=== PATIENT | female | born 1980 | race Caucasian/White ===

== ENCOUNTER 2017-02-12 11:49 | Emergency (ER) | payer OTHER, BC | END 2017-02-12 19:12 | disposition home or self-care (01) | LOC: ER1 11:49 | DX: S16.1XXA Strain of muscle, fascia and tendon at neck level, initial encounter (principal); S39.012A Strain of muscle, fascia and tendon of lower back, initial encounter; Z88.0 Allergy status to penicillin; Z88.8 Allergy status to other drugs, medicaments and biological substances; V43.52XA Car driver injured in collision with other type car in traffic accident, initial encounter; Y93.89 Activity, other specified; Y92.410 Unspecified street and highway as the place of occurrence of the external cause | CPT/HCPCS: 70450; 71010; 72125; 72131; 73502; 81001; 84703; 99284 ==

== ENCOUNTER → 2021-09-30 | Outpatient (CLI) | payer BC | LOC: MAMO 09:35 | DX: R92.2 Inconclusive mammogram (principal); R92.8 Other abnormal and inconclusive findings on diagnostic imaging of breast; N63.20 Unspecified lump in the left breast, unspecified quadrant; Z80.3 Family history of malignant neoplasm of breast | CPT/HCPCS: 76641; 77063; 77067 ==

== ENCOUNTER → 2021-12-07 | Outpatient (CLI) | payer BC | LOC: MAMO 11-10 10:00 → US 11-16 10:00 → MAMO 09:29 | DX: R92.8 Other abnormal and inconclusive findings on diagnostic imaging of breast (principal); N63.10 Unspecified lump in the right breast, unspecified quadrant | CPT/HCPCS: 76641-RT; 77065 ==